=== PATIENT | female | born 1970 | race Caucasian/White ===

== ENCOUNTER 2016-08-26 02:16 | Emergency (ER) | payer OTHER | END 2016-08-26 03:26 | disposition home or self-care (01) | LOC: ER 02:16 | DX: G43.009 Migraine without aura, not intractable, without status migrainosus (principal); K21.9 Gastro-esophageal reflux disease without esophagitis; F17.210 Nicotine dependence, cigarettes, uncomplicated; Z90.49 Acquired absence of other specified parts of digestive tract; Z91.040 Latex allergy status; Z79.899 Other long term (current) drug therapy; Z87.442 Personal history of urinary calculi | CPT/HCPCS: 96372; J2270; J2550 ==

== ENCOUNTER 2016-10-05 19:02 | Emergency (ER) | payer OTHER | END 2016-10-05 22:05 | disposition home or self-care (01) | LOC: ER 19:02 | DX: R53.1 Weakness (principal); R55 Syncope and collapse; R31.21 Asymptomatic microscopic hematuria; K21.9 Gastro-esophageal reflux disease without esophagitis; E78.5 Hyperlipidemia, unspecified; F17.210 Nicotine dependence, cigarettes, uncomplicated; Z90.49 Acquired absence of other specified parts of digestive tract; Z87.442 Personal history of urinary calculi; Z91.040 Latex allergy status | CPT/HCPCS: 36415 ==